=== PATIENT | female | born 1980 | race Caucasian/White ===

== ENCOUNTER 2017-09-06 00:46 | Emergency (ER) | payer MEDICAID, OTHER ==
[2017-09-06 00:48] VITALS: BMI 28.8
[2017-09-06 00:56] VITALS: BP 110/70; PULSE 80; RESP 14; TEMP 98; O2SAT 98
--- NOTE | 2017-09-06 01:34 | C.PDOC ---
History Of Present Illness 37 years old female presents to ED with complaints of pain to left thigh that radiates to left foot that began a month ago. Patient states last night the pain increased and worse in left foot which prompted ER visit. Patient has Hx of prolonged standing and a lot of walking. Denies calf pain, recent travel, trauma, numbness or weakness of lower extremity. Time Seen by Provider: 09/06/17 01:07 Chief Complaint (Nursing): Lower Extremity Problem/Injury History Per: Patient History/Exam Limitations: no limitations Onset/Duration Of Symptoms: Days (30) Current Symptoms Are (Timing): Still Present Recent travel outside of the [place]: No Past Medical History Reviewed: Historical Data, Nursing Documentation, Vital Signs Vital Signs: Last Vital Signs Temp 98 F 09/06/17 00:52 Pulse 80 09/06/17 00:52 Resp 14 09/06/17 00:52 BP 110/70 09/06/17 00:52 Pulse Ox 98 09/06/17 07:01 - Medical History PMH: No Chronic Diseases Surgical History: No Surg Hx Family History: States: No Known Family Hx - Social History Hx Alcohol Use: No Hx Substance Use: No - Immunization History Hx Tetanus Toxoid Vaccination: No Hx Influenza Vaccination: No Hx Pneumococcal Vaccination: No Review Of Systems Constitutional: Negative for: Fever, Chills Musculoskeletal: Positive for: Leg Pain (lt thigh), Foot Pain (left foot) Neurological: Negative for: Weakness, Numbness Physical Exam - Physical Exam Head: Atraumatic Eye(s): bilateral: Normal Inspection Extremity: Normal ROM, No Tenderness (to left foot and thigh on palpation), No Calf Tenderness, Capillary Refill (less than 2 seconds), No Deformity, Swelling , Other (varicose veins in left lower leg and thigh. No erythema to left foot) Extremity: Bilateral: Normal Color And Temperature, Normal ROM Neurological/Psych: Oriented x3, Normal Speech, Normal Cognition, Normal Motor, Normal Sensation Gait: Steady ED Course And Treatment O2 Sat by Pulse Oximetry: 98 (RA) Pulse Ox Interpretation: Normal Progress Note: Administered Motrin. Advised to elevate leg and follow up with instructions given. Disposition Counseled Patient/Family Regarding: Diagnosis, Need For Followup, Rx Given - Disposition Referrals: 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 - Scribe Statement The provider has reviewed the documentation as recorded by the Scribyamil Berg All medical record entries made by the Madelineibyamil were at my direction and personally dictated by me. I have reviewed the chart and agree that the record accurately reflects my personal performance of the history, physical exam, medical decision making, and the department course for this patient. I have also personally directed, reviewed, and agree with the discharge instructions and disposition.
== END 2017-09-06 02:15 | disposition home or self-care (01) ==
LOC: C.ER 00:46
DX: I83.812 Varicose veins of left lower extremity with pain (principal)